=== PATIENT | female | born 1970 | race Caucasian/White ===

== ENCOUNTER 2017-06-16 13:22 | Emergency (ER) | payer OTHER ==
[~2017-06-16] VITALS: Ht 157.5 cm; Wt 68.3 kg
[2017-06-16 13:35] VITALS: BP 150/72
--- NOTE | 2017-06-16 13:55 | NUR ---
Patient to bed 12 at this time.
--- NOTE | 2017-06-16 14:23 | NUR ---
46 F BIB SELF WITH C/O 3/10 "SHOOTING/SHARP" PAIN TO BL HANDS, BLE, FEET, AND LEFT SIDE OF POSTERIOR HIP; PT DENIES ANY RECENT FALL OR INJURY; CMS INTACT TO BL UPPER AND LOWER EXTERMITIES; SKIN IS PINK/WARM/DRY; AOX4 WITH EVEN AND STEADY GAIT; RR ARE EVEN AND UNLABORED; VSS; PATIENT POSITIONED FOR COMFORT; HOB ELEVATED; BED DOWN. ER MD MADE AWARE OF PT STATUS.
[2017-06-16] MEDS ORDERED: KETOROLAC 60 MG/2 ML VIAL IM ONE (14:30)
[2017-06-16 15:35] VITALS: BP 147/79
== END 2017-06-16 15:35 | disposition home or self-care (01) ==
LOC: MED 13:22
DX: G89.29 Other chronic pain (principal); M79.646 Pain in unspecified finger(s); M79.673 Pain in unspecified foot; M79.7 Fibromyalgia; M06.9 Rheumatoid arthritis, unspecified
CPT/HCPCS: 96372; 99283; J1885

== ENCOUNTER 2018-01-23 13:12 | Emergency (ER) | payer OTHER ==
[~2018-01-23] VITALS: Ht 154.9 cm; Wt 64.4 kg
[2018-01-23 14:07] VITALS: BP 123/81
--- NOTE | 2018-01-23 14:18 | NUR ---
PATIENT AMBULATED TO BED 6.
--- NOTE | 2018-01-23 14:20 | NUR ---
PT C/O FEVER, N/V, RUQ ABD PAIN FOR 4 DAYS. DENIES SOB CP OR DAIRRHEA. PT STATES YESTERDAY SHE HAD 2 BM'S WITH BRIGHT RED BLOOD IN THEM. SKIN IS PINK/WARM/DRY; AAOX4 WITH EVEN AND STEADY GAIT; LUNGS CLEAR BL; HR EVEN AND REGULAR; PT DENIES ANY CP, SOB, OR COUGH AT THIS TIME; PATIENT STATES PAIN OF 1/10 AT THIS TIME; VSS; PATIENT POSITIONED FOR COMFORT; HOB ELEVATED; BEDRAILS UP X2; BED DOWN. ER MD MADE AWARE OF PT STATUS.
--- NOTE | 2018-01-23 14:57 | NUR ---
LAB AT BEDSIDE
[2018-01-23 15:14] LABS: BASOPHILS % (AUTO) 0.4 % (0.0-2.0); EOSINOPHILS # (AUTO) 0.1 K/uL (0-0.4); EOSINOPHILS % (AUTO) 1.8 % (0.0-4.0); HEMATOCRIT 41.4 % (36-48); HEMOGLOBIN 13.9 g/dL (12.0-16.0); LYMPHOCYTES # (AUTO) 1.3 K/uL (2.5-16.5); LYMPHOCYTES % (AUTO) 25.4 % (20.5-51.1); MEAN CORPUSCULAR HEMOGLOBIN 29 pg (27-31); MEAN CORPUSCULAR HGB CONC 34 g/dL (33-37); MEAN CORPUSCULAR VOLUME 86.8 fL (80-94); MONOCYTES # (AUTO) 0.4 K/uL (0.8-1.0); MONOCYTES % (AUTO) 7.1 % (1.7-9.3); NEUTROPHILS # (AUTO) 3.3 K/uL (1.8-7.7); NEUTROPHILS % (AUTO) 65.3 % (42.2-75.2); PLATELET COUNT (AUTO) 234 K/uL (140-450); RED BLOOD CELL COUNT(AUTO) 4.77 MIL/uL (4.20-5.40); RED CELL DISTRIBUTION WIDTH 13.6 % (11.6-13.7)
[2018-01-23 16:20] VITALS: BP 126/80
--- NOTE | 2018-01-23 16:20 | NUR ---
Patient discharged with v/s stable. Written and verbal after care instructions given and explained. Patient verbalized understanding. Ambulatory with steady gait. All questions addressed prior to discharge. Advised to follow up with PMD.
== END 2018-01-23 16:20 | disposition home or self-care (01) ==
LOC: MED 13:12
DX: K62.5 Hemorrhage of anus and rectum (principal); M06.9 Rheumatoid arthritis, unspecified; M79.7 Fibromyalgia; L93.0 Discoid lupus erythematosus
CPT/HCPCS: 36415; 85025; 99283

== ENCOUNTER 2019-03-25 15:21 | Emergency (ER) | payer MEDICAID, OTHER ==
[~2019-03-25] VITALS: Ht 154.9 cm; Wt 68.1 kg
[2019-03-25 16:00] VITALS: BP 139/71
--- NOTE | 2019-03-25 16:28 | NUR ---
PT TO ER BED 7
--- NOTE | 2019-03-25 16:45 | NUR ---
C/O RT EAR PAIN X 3 DAYS AND MEDS REFILL, PAIN 2/10. DENIES N/V/D; VSS; PATIENT POSITIONED FOR COMFORT; HOB ELEVATED; BEDRAILS UP X1; BED DOWN. ER MD MADE AWARE OF PT STATUS.
[2019-03-25 18:46] VITALS: BP 124/68
--- NOTE | 2019-03-25 18:47 | NUR ---
Patient discharged with v/s stable. Written and verbal after care instructions given and explained. Patient alert, oriented and verbalized understanding of instructions. Ambulatory with steady gait. All questions addressed prior to discharge. ID band removed. Patient advised to follow up with PMD. Rx of TRAMADOL,NAPROXEN, CORTISPORIN given. Patient educated on indication of medication including possible reaction and side effects. Opportunity to ask questions provided and answered.
== END 2019-03-25 18:45 | disposition home or self-care (01) ==
LOC: MED 15:21
DX: H60.501 Unspecified acute noninfective otitis externa, right ear (principal); Z76.0 Encounter for issue of repeat prescription
CPT/HCPCS: 99283